=== PATIENT | male | born 1990 | race Caucasian/White ===

== ENCOUNTER 2021-12-07 19:40 | Emergency (ER) | payer MEDICAID, OTHER ==
[~2021-12-07] VITALS: Ht 170.2 cm; Wt 64.9 kg
[2021-12-07 20:01] VITALS: BP 120/78
== END 2021-12-07 21:32 | disposition left against medical advice (07) ==
LOC: EDBD 19:40 → ER 19:46
DX: M79.662 Pain in left lower leg (principal); M79.661 Pain in right lower leg; Z53.21 Procedure and treatment not carried out due to patient leaving prior to being seen by health care provider